=== PATIENT | female | born 1960 | race Caucasian/White ===

== ENCOUNTER 2020-07-13 09:39 | Outpatient (CLI) | payer OTHER, SELFPAY ==
[2020-07-13 10:11] VITALS: BP 135/74; PULSE 100; RESP 18; TEMP 38.2; O2SAT 92; BMI 36.0
--- NOTE | 2020-07-13 10:23 | ED_ITS ---
HPI - COVID General: Chief Complaint: Infusion Yuri Stated Complaint: BAM infusion Time Seen by Provider: 07/13/20 10:22 Triage information: Has fever, cough or shortness of breath . Exposure to COVID + person last 14 days History of Present Illness: HPI Narrative: 59-year-old female with a history of asthma. She presents emergency room in hopes of receiving monoclonal antibody infusion. She tested positive for Covid 6 days ago. She has a history of asthma. She is not requiring any oxygen at home she still is running some fevers her oxygen saturations in the triage room will vary from 92 to 96%. She has been regularly using albuterol with good results. She denies any chest pain. She has had some loose stools. MD complaint: known COVID positive Prior covid testing: yes, results known Prior testing date: 07/07/20 COVID 19 common symptoms: positive fever(s), chills, cough, non-productive cough, dyspnea, fatigue, body aches and nasal congestion; negative nausea, vomiting or diarrhea COVID 19 other sytmptoms: negative chest pain or requiring oxygen Onset (ago): day(s) (6-7) Severity: mild Pertinent comorbid conditions: COPD/respiratory disease Treatment prior to arrival: breathing treatments COVID Results: No Data to Display Review of Systems Const: Reports: fever(s), chills, body aches and fatigue ENMT: Reports: nasal congestion Card: Denies: chest pain, edema, dyspnea on exertion or orthopnea Resp: Reports: dyspnea and non-productive cough GI: Denies: abdominal pain, nausea, vomiting, hematemesis, coffee ground emesis, diarrhea, constipation, bloating, hematochezia or melena : Denies: flank pain, difficulty voiding, dysuria, urinary frequency or urinary urgency Skin/Breast: Denies: rash or pruritus PFSH ED PFSH: Medical History (Updated 07/13/20 @ 10:37 by Osman Hsu DO) Asthma COVID-19 Social History (Updated 07/13/20 @ 10:18 by Marcelo Agustin RN) Smoking and tobacco status: never smoked Alcohol intake: never Substance/Drug Use: never Physical Exam Const: COMMON NORMALS: no acute distress GENERAL APPEARANCE: cooperative and comfortable ORIENTATION/CONSCIOUSNESS: Yes awake, Yes oriented to person, Yes oriented to place and Yes oriented to time HENMT: COMMON NORMALS: normocephalic, atraumatic and hearing grossly normal bilaterally HEAD & SCALP: normocephalic and atraumatic Neck/C-Spine: COMMON NORMALS: no JVD Resp: COMMON NORMALS: No retractions and No use of accessory muscles AUSCULTATION: wheezes Cardio: COMMON NORMALS: no JVD, regular rate, regular rhythm and No murmurs present (Cardio) RATE: regular rate RHYTHM: regular rhythm GI: COMMON NORMALS: Soft to palpation and No hepatosplenomegaly present AUSCULTATION: Yes normoactive bowel sounds PALPATION: Yes Soft to palpation, No Tenderness to palpation present (GI), No Guarding due to palpation present (GI) and Yes No hepatosplenomegaly present Extremity: COMMON NORMALS: normal to inspection, capillary refill normal, no clubbing, cyanosis or edema, no calf tenderness and no pedal edema Neuro: SENSORIUM/ORIENTATION: Yes oriented to person, Yes oriented to place and Yes oriented to time Skin: COMMON NORMALS: no rashes or lesions noted GENERAL SKIN EXAM: no rashes or lesions noted Course Vital Signs: Vital signs: Vital Signs Temperature 100.7 F H 07/13/20 10:11 Pulse Rate 100 07/13/20 10:11 Respiratory Rate 18 07/13/20 10:11 Blood Pressure 135/74 07/13/20 10:11 Pulse Oximetry 92 07/13/20 10:11 MDM - COVID COVID Results: No Data to Display Monoclonal Antibody Treatments Inclusion/Exclusion Criteria weight >/= 40 kg and + direct Sars-Cov-2 test less than 7-10 days ago BMI >/= 35 and age >/= 55 and has COPD/lung diease not requiring hospitalization, not requiring oxygen (if not chronically on oxygen) and no increase oxygen requirement (if chronically on oxygen) Patient education patient/family/caregiver received/reviewed fact sheet, Emergency Use Authorization/unapproved drug status discussed with patient/family/caregiver, alternatives to this treatment discussed with patient/family/caregiver, risks and benefits of medication reviewed with patient/family/caregiver, patient/family/caregiver given opportunity for questions, which were answered and patient consents to receiving Monoclonal Antibody Treatment Plan for treatment Meets criteria for Monoclonal Antibody infusion Ordering Monoclonal Antibody infusion for today and Monoclonal antibody information given Discharge Plan Discharge Patient Disposition: Home Clinical Impression: COVID-19, Asthma Condition: Stable Discharge Orders: Discharge ED (Routine); Ordered 07/13/20 Ordered By: Osman Hus Coding Level of Care Code ED Director Of Human Resources for Jd Song
[2020-07-13 11:21] VITALS: BP 122/73; PULSE 96; RESP 16; TEMP 37.7; O2SAT 93; BMI 36.6
[2020-07-13 12:12] VITALS: BP 100/64; PULSE 90; RESP 17; TEMP 37.8; O2SAT 91
[2020-07-13 13:55] VITALS: BP 121/71; PULSE 87; RESP 17; TEMP 37.7; O2SAT 91
--- NOTE | 2020-07-19 15:00 | DCPLANNER ---
Addendum entered by Bridgette Coats 07/26/20 14:42: Patient returned porter sample case phone call, she stated that she was feeling good. Patient stated that she has not been admitted to any hospital. Addendum entered by Bridgette Coats 07/26/20 13:52: field project manager called to check on patient 10 days after getting the infusion. field project manager was unable to speak with patient at this time, a voicemail was left for patient to return porter sample case phone call. Addendum entered by Bridgette Coats 07/21/20 15:33: field project manager called to check on patient after receiving the BAM infusion. Patient stated that she is feeling great. Original Note: field project manager had message that patient received the BAM infusion. field project manager called to check on patient after receiving the infusion. Patient stated that she tolorated the infusion well, patient stated that before the infusion that the only symptom that she really had was that her asthma attacks were not stopping, she did not have a fever, she had a slight headache. After the infusion, she stated that she is feeling better, that her asthma attacks are better she still has some issues with them. Said that she still has some issues with her lungs. A follow up appointment was scheduled with Dr. Burk for Saturday, July 25, 2020 at 1:[address] Burk
== END 2020-07-13 13:55 | disposition home or self-care (01) ==
LOC: ER 10:23 → OPS 10:37
PROVIDERS: Emergency Provider Family Medicine; Visit Provider Family Medicine
DX: U07.1 COVID-19 (principal)
CPT/HCPCS: 12345; 99281; J7050